=== PATIENT | male | born 1995 | race American Indian/Alaskan Native ===

== ENCOUNTER 2017-01-25 15:38 | Emergency (ER) | payer OTHER ==
[2017-01-25 16:17] VITALS: BP 129/76
--- NOTE | 2017-01-25 17:23 | XRay Report ---
FINAL REPORT EXAM: XR SHOULDER 2+V RT HISTORY: fall pain rt shoulder pain TECHNIQUE: AP, Y, and oblique views of the right shoulder PRIORS: None. FINDINGS: There is no evidence of acute fracture or dislocation. Joint spaces are maintained and bony mineralization is normal. Soft tissues are unremarkable. IMPRESSION: No acute abnormality identified in the right shoulder.
--- NOTE | 2017-01-25 17:25 | XRay Report ---
FINAL REPORT EXAM: XR WRIST 3+V RT HISTORY: fall pain r wrist TECHNIQUE: AP, lateral, and oblique views of the right wrist PRIORS: None. FINDINGS: No evidence of acute fracture or dislocation is seen. The soft tissues are unremarkable with no soft tissue swelling or radiopaque foreign bodies. Joint spaces are maintained. IMPRESSION: No acute soft tissue or bony abnormality identified.
--- NOTE | 2017-01-25 17:36 | Emergency Department Report ---
ED Upper Extremity Inj HPI - General Chief Complaint: Extremity Problem,Nontraumatic Stated Complaint: RTSHOULDER PAIN/RT WRIST PAIN Time Seen by Provider: 01/25/17 16:25 Source: patient Mode of arrival: Ambulatory Limitations: No Limitations - History of Present Illness MD Complaint: Injury to:: right, shoulder, wrist -: Gradual Handedness: right Place: home Worsens With: movement of extremity Associated Symptoms: denies other symptoms. denies: weakness, numbness, neck pain, suspects foreign body, nausea/vomiting, heard/felt popping sensat - Related Data Previous Rx's Medication Instructions Recorded Last Taken Type Amoxicillin [Trimox CAP] 500 mg PO BID #20 capsule 01/25/17 Unknown Rx traMADol [Ultram] 50 mg PO Q6HR PRN #10 tablet 01/25/17 Unknown Rx Allergies Allergy/AdvReac Type Severity Reaction Status Date / Time peanut Allergy Anaphylaxis Verified 01/25/17 16:17 ED Review of Systems ROS: Stated complaint: RTSHOULDER PAIN/RT WRIST PAIN Other details as noted in HPI Comment: All other systems reviewed and negative Constitutional: no symptoms reported Eyes: as per HPI ENT: as per HPI Respiratory: no symptoms reported, see HPI Cardiovascular: as per HPI Endocrine: no symptoms reported, see HPI Gastrointestinal: as per HPI Genitourinary: as per HPI Musculoskeletal: as per HPI Skin: as per HPI Neurological: as per HPI Psychiatric: as per HPI Hematological/Lymphatic: as per HPI ED Past Medical Hx - Past Medical History Previous Medical History?: No - Surgical History Past Surgical History?: Yes Additional Surgical History: right shoulder surgery - Social History Smoking Status: Never Smoker Substance Use Type: None - Medications Home Medications: Home Medications Medication Instructions Recorded Confirmed Last Taken Type Amoxicillin [Trimox CAP] 500 mg PO BID #20 capsule 01/25/17 Unknown Rx traMADol [Ultram] 50 mg PO Q6HR PRN #10 tablet 01/25/17 Unknown Rx ED Physical Exam - General Limitations: No Limitations General appearance: alert, in no apparent distress - Head Head exam: Present: atraumatic - Eye Eye exam: Present: normal appearance - ENT ENT exam: Present: normal exam, mucous membranes moist - Neck Neck exam: Present: normal inspection, full ROM. Absent: tenderness, meningismus, lymphadenopathy, thyromegaly - Respiratory Respiratory exam: Present: normal lung sounds bilaterally. Absent: respiratory distress, wheezes, rales, rhonchi, stridor - Cardiovascular Cardiovascular Exam: Present: regular rate - GI/Abdominal GI/Abdominal exam: Present: soft, normal bowel sounds - Rectal Rectal exam: Present: deferred - Extremities Exam Extremities exam: Present: normal capillary refill. Absent: pedal edema, joint swelling, calf tenderness - Expanded Upper Extremity Exam Right Shoulder Exam: Present: other (pain w elevation ant, lat and post. no ac tenderness. ) Elbow exam: Present: normal inspection, full ROM. Absent: tenderness, swelling , abrasion, laceration, ecchymosis, deformity Forearm Wrist exam: Present: normal inspection, full ROM. Absent: tenderness, swelling, abrasion, laceration, ecchymosis, deformity, crepidus, dislocation, erythema, tenderness over anatomical snuff box, pain with axial thumb loading Hand Wrist exam: Present: normal inspection, full ROM. Absent: tenderness, swelling, abrasion, laceration, ecchymosis, deformity, crepidus, dislocation, erythema, amputation, nail avulsion, subungual hematoma Neuro motor exam: Present: wrist extension intact, thumb opposition intact, thumb IP flexion intact, thumb adduction intact, fingers 2-5 abduction intact Neurosensory exam: Present: radial nerve intact, ulnar nerve intact, median nerve intact Vascular: Present: vascular compromise, normal capillary refill, radial pulse, ulnar pulse - Back Exam Back exam: Present: normal inspection, full ROM. Absent: tenderness, CVA tenderness (R), CVA tenderness (L), muscle spasm, paraspinal tenderness, vertebral tenderness - Neurological Exam Neurological exam: Present: alert, altered, oriented X3, CN II-XII intact, normal gait, reflexes normal. Absent: abnormal gait, motor sensory deficit ED Course Vital Signs 01/25/17 01/25/17 16:12 18:03 Temperature 97.8 F Pulse Rate 86 Respiratory 18 16 Rate Blood Pressure 129/76 Blood Pressure 129/76 [Left] O2 Sat by Pulse 99 Oximetry - Reevaluation(s) Reevaluation #1: 01/25/17 18:09 to er sp fall last pm was having sex in shower when his gf slipped in attempt to catch her he fell out of the shower and she landed on him he has a prior r shoulder labrum injury w previous surg xrays neg on exam he has full rom of hand/wrist/elbow. n/v intact radial ulnar medial nerves intact no swelling or point tenderness his pain appears to be coming from the shoulder he has pain w more than 20 deg ant/lat/post movement xray neg per rad given hx will sling nsaid/ultram fu with his ortho next week along w ice/rest. neurovasc intact on dc instructed he and friend on dc poc referrals given verbalize understanding. ED Medical Decision Making - Radiology Data Radiology results: report reviewed, image reviewed - Differential Diagnosis ro fx v soft tissue injury Critical care attestation.: If time is entered above; I have spent that time in minutes in the direct care of this critically ill patient, excluding procedure time. ED Disposition Clinical Impression: Sprain of wrist, Shoulder contusion, Fall Disposition: [id number] PSY HOSP/PSY UNIT Is pt being admited?: No Does the pt Need Aspirin: No Condition: Stable Instructions: Shoulder Sprain (ED) Additional Instructions: ice rest elevate motrin or tylenol for pain follow up with ortho next week. immobilizer to shoulder ultram only for severe pain xrays show no acute fracture today. follow up ortho Friday for repeat or further images. Prescriptions: Amoxicillin [Trimox CAP] 500 mg PO BID #20 capsule traMADol [Ultram] 50 mg PO Q6HR PRN #10 tablet PRN Reason: Pain Referrals: BHARGAV CAGE MD [Primary Care Provider] - 3-5 Days JOY MCCAULEY MD [Staff Physician] - 3-5 Days Time of Disposition: 18:00
[2017-01-25] MEDS ORDERED: ULTRAM PO ONE (17:58)
--- NOTE | 2017-01-25 19:05 | Event Note ---
Date: 01/25/17 pt was not sent home on amox. that amox carried over the dc paper from an earlier visit or entry into chart; when RN did med rec he was given only ultram for pain unrelieved by motrin.
== END 2017-01-25 18:33 ==
LOC: ED 15:38
DX: S63.501A Unspecified sprain of right wrist, initial encounter (principal); S40.011A Contusion of right shoulder, initial encounter; W18.30XA Fall on same level, unspecified, initial encounter; Y93.9 Activity, unspecified; Y92.9 Unspecified place or not applicable; Y99.9 Unspecified external cause status